=== PATIENT | male | born 1945 | race Hispanic/Latino ===

== ENCOUNTER 2017-01-20 14:32 | Outpatient (CLI) | payer MEDICARE, OTHER ==
--- NOTE | 2017-01-20 15:20 | XRay Report ---
Right elbow 3 views: History: Pain. Findings: No acute fracture or dislocation. 3 mm bony density superior aspect of the olecranon process may be related to old avulsion fracture or calcification. No joint effusion. Impression: No evidence of acute fracture.
== END 2017-01-20 14:33 | disposition home or self-care (01) ==
LOC: SPVIMAG 14:32
PROVIDERS: ATTEND Orthopaedic Surgery Sports Medicine
DX: M25.521 Pain in right elbow (principal)